=== PATIENT | male | born 1950 | race Caucasian/White ===

== ENCOUNTER → 2023-05-25 | Outpatient (CLI) | payer OTHER | LOC: M WUC 12:33 | PROVIDERS: ATTEND Internal Medicine Pulmonary Disease | DX: J68.4 Chronic respiratory conditions due to chemicals, gases, fumes and vapors (principal) ==

== ENCOUNTER → 2024-05-09 | Outpatient (CLI) | payer OTHER | LOC: M WUC 10:02 | PROVIDERS: ATTEND Internal Medicine Pulmonary Disease | DX: J68.4 Chronic respiratory conditions due to chemicals, gases, fumes and vapors (principal) ==

== ENCOUNTER → 2025-05-17 | Outpatient (REF) | payer OTHER, MEDICARE | LOC: M LAB REF 15:53 | PROVIDERS: ATTEND Surgery | DX: C44.729 Squamous cell carcinoma of skin of left lower limb, including hip (principal) ==